=== PATIENT | male | born 1995 | race Caucasian/White ===

== ENCOUNTER 2017-10-22 06:50 | Emergency (ER) | payer OTHER ==
[2017-10-22 07:18] VITALS: RESP 16
[2017-10-22] MEDS ORDERED: SODIUM CHLORIDE 0.9% 1,000 ML IV STA (08:00)
[2017-10-22] MEDS ORDERED: ONDANSETRON 4 MG/2 ML VIAL IVP STA (08:00)
[2017-10-22] MEDS ORDERED: FAMOTIDINE 20 MG/2 ML VIAL IV STA (08:00)
--- NOTE | 2017-10-22 08:02 | ED ---
General Adult HPI - General Chief complaint: Nausea/Vomiting/Diarrhea Stated complaint: Vomiting Time Seen by Provider: 10/22/17 07:58 Source: patient, RN notes reviewed Mode of arrival: ambulatory Limitations: no limitations - History of Present Illness Initial comments: Patient is a pleasant 21-year-old male presenting to the emergency Department with vomiting. Onset was a couple of days ago. Patient has vomited proximal he 45 times. Patient still has nausea. No abdominal pain. Patient has had a few episodes of diarrhea. Patient is unclear whether or not he could've had a fever at one point. Patient did not check his temperature. - Related Data Previous Rx's Medication Instructions Recorded Ondansetron Odt [Zofran Odt] 4 mg PO Q8HR PRN #10 tab 10/22/17 Allergies Allergy/AdvReac Type Severity Reaction Status Date / Time No Known Allergies Allergy Verified 10/22/17 07:43 Review of Systems ROS Statement: Those systems with pertinent positive or pertinent negative responses have been documented in the HPI. ROS Other: All systems not noted in ROS Statement are negative. Constitutional: Denies: weakness Eyes: Denies: eye pain ENT: Denies: ear pain Respiratory: Denies: cough Cardiovascular: Denies: palpitations Endocrine: Denies: fatigue Gastrointestinal: Reports: nausea, vomiting, diarrhea. Denies: abdominal pain Genitourinary: Denies: dysuria Musculoskeletal: Denies: back pain Skin: Denies: rash Neurological: Denies: weakness Past Medical History Past Medical History: No Reported History History of Any Multi-Drug Resistant Organisms: None Reported Past Surgical History: No Surgical Hx Reported Past Psychological History: No Psychological Hx Reported Smoking Status: Current every day smoker Past Alcohol Use History: Rare Past Drug Use History: Marijuana General Exam Limitations: no limitations General appearance: alert, in no apparent distress Head exam: Present: atraumatic Eye exam: Present: normal appearance, PERRL ENT exam: Present: normal oropharynx Neck exam: Present: normal inspection Respiratory exam: Present: normal lung sounds bilaterally Cardiovascular Exam: Present: regular rate, normal rhythm GI/Abdominal exam: Present: soft. Absent: distended, tenderness Extremities exam: Present: normal inspection. Absent: calf tenderness Neurological exam: Present: alert Psychiatric exam: Present: normal affect, normal mood Skin exam: Present: normal color Course Vital Signs 10/22/17 10/22/17 06:53 07:18 Temperature 97 F L Pulse Rate 73 Respiratory 6 L 16 Rate Blood Pressure 141/74 O2 Sat by Pulse 99 Oximetry Medical Decision Making - Medical Decision Making Patient reevaluated and improved. Patient is comfortable with discharge home. Patient updated on results and need for follow-up. - Lab Data Result diagrams: 10/22/17 08:20 10/22/17 08:20 Lab Results 10/22/17 10/22/17 Range/Units 08:20 08:20 WBC 4.7 (3.8-10.6) k/uL RBC 4.36 (4.30-5.90) m/uL Hgb 14.0 (13.0-17.5) gm/dL Hct 40.1 (39.0-53.0) % MCV 92.1 (80.0-100.0) fL MCH 32.0 (25.0-35.0) pg MCHC 34.8 (31.0-37.0) g/dL RDW 12.0 (11.5-15.5) % Plt Count 259 (150-450) k/uL Neutrophils % 48 % Lymphocytes % 38 % Monocytes % 8 % Eosinophils % 3 % Basophils % 1 % Neutrophils # 2.3 (1.3-7.7) k/uL Lymphocytes # 1.8 (1.0-4.8) k/uL Monocytes # 0.4 (0-1.0) k/uL Eosinophils # 0.2 (0-0.7) k/uL Basophils # 0.0 (0-0.2) k/uL Sodium 142 (137-145) mmol/L Potassium 4.3 (3.5-5.1) mmol/L Chloride 104 (98-107) mmol/L Carbon Dioxide 29 (22-30) mmol/L Anion Gap 9 mmol/L BUN 14 (9-20) mg/dL Creatinine 0.80 (0.66-1.25) mg/dL Est GFR (MDRD) Af Amer >60 (>60 ml/min/1.73 sqM) Est GFR (MDRD) Non-Af >60 (>60 ml/min/1.73 sqM) Glucose 98 (74-99) mg/dL Calcium 9.7 (8.4-10.2) mg/dL Total Bilirubin 0.4 (0.2-1.3) mg/dL AST 22 (17-59) U/L ALT 31 (21-72) U/L Alkaline Phosphatase 46 (38-126) U/L Total Protein 6.6 (6.3-8.2) g/dL Albumin 4.1 (3.5-5.0) g/dL Disposition Clinical Impression: Acute vomiting Disposition: HOME SELF-CARE Condition: Stable Instructions: Acute Nausea and Vomiting (ED) Additional Instructions: Please follow-up with primary care physician in the next couple days for recheck. Return for uncontrolled vomiting, pain, fever, worsening symptoms or other concerns. Prescriptions: Ondansetron Odt [Zofran Odt] 4 mg PO Q8HR PRN #10 tab PRN Reason: Nausea Referrals: Ed Gomes MD [STAFF PHYSICIAN] - 1-2 days Time of Disposition: 09:20
[2017-10-22 08:28] LABS: Basophils % (A) 1 %; Eosinophils # (A) 0.2 k/uL (0-0.7); Eosinophils % (A) 3 %; HCT 40.1 % (39.0-53.0); Lymphocytes # (A) 1.8 k/uL (1.0-4.8); Lymphocytes % (A) 38 %; MCHC 34.8 g/dL (31.0-37.0); MCV 92.1 fL (80.0-100.0); Mean Platelet Volume 7.2; Monocytes # (A) 0.4 k/uL (0-1.0); Monocytes % (A) 8 %; Neutrophils # (A) 2.3 k/uL (1.3-7.7); Neutrophils % (A) 48 %; Platelet Count 259 k/uL (150-450); RBC 4.36 m/uL (4.30-5.90); WBC 4.7 k/uL (3.8-10.6)
[2017-10-22 08:39] LABS: ALT 31 U/L (21-72); AST 22 U/L (17-59); Albumin 4.1 g/dL (3.5-5.0); Alkaline Phosphatase 46 U/L (38-126); Anion Gap 9 mmol/L; Blood Urea Nitrogen 14 mg/dL (9-20); Calcium 9.7 mg/dL (8.4-10.2); Carbon Dioxide 29 mmol/L (22-30); Chloride 104 mmol/L (98-107); Glucose 98 mg/dL (74-99); Potassium 4.3 mmol/L (3.5-5.1); Sodium 142 mmol/L (137-145); Total Bilirubin 0.4 mg/dL (0.2-1.3); Total Protein 6.6 g/dL (6.3-8.2)
[2017-10-22 09:30] VITALS: BP 120/70; PULSE 74; TEMP 97.8
== END 2017-10-22 09:29 | disposition home or self-care (01) ==
LOC: EC 06:50
DX: R11.10 Vomiting, unspecified (principal); R19.7 Diarrhea, unspecified; F17.200 Nicotine dependence, unspecified, uncomplicated
CPT/HCPCS: 36415; 80053; 85025; 99284; 96374; 96375; 96361; J2405

== ENCOUNTER 2020-04-01 09:34 | Emergency (ER) | payer OTHER ==
[2020-04-01 09:42] VITALS: TEMP 98.3
--- NOTE | 2020-04-01 10:00 | ED ---
General Adult HPI <Missael Briggs - Last Filed: 04/01/20 17:24> - General Source: patient, EMS, RN notes reviewed Mode of arrival: EMS Limitations: no limitations <Puma Ang - Last Filed: 04/03/20 06:07> - General Chief complaint: Wound/Laceration Stated complaint: Mental health Time Seen by Provider: 04/01/20 09:35 - History of Present Illness Initial comments: 24-year-old male presents emergency Department chief complaint of left arm laceration times psychiatric evaluation. Patient states he is severely depressed states that he drinks alcohol frequently states he is drinking last night and became more depressed because passing of his father. Patient intentionally harm himself. Patient states she does not feel suicidal at this time. Patient denies any other areas of injury no prior attempts. Denies any drug abuse. Patient does have ongoing depression and which she has seen psy chiatrist. He refuses medication treatment. (Puma Ang) - Related Data Previous Rx's Medication Instructions Recorded Ondansetron Odt [Zofran Odt] 4 mg PO Q8HR PRN #10 tab 10/22/17 Allergies Allergy/AdvReac Type Severity Reaction Status Date / Time No Known Allergies Allergy Verified 10/22/17 07:43 Review of Systems ROS Other: All systems not noted in ROS Statement are negative. <Missael Briggs - Last Filed: 04/01/20 17:24> ROS Other: All systems not noted in ROS Statement are negative. <Puma Ang - Last Filed: 04/03/20 06:07> ROS Statement: Those systems with pertinent positive or pertinent negative responses have been documented in the HPI. Past Medical History Past Medical History: No Reported History History of Any Multi-Drug Resistant Organisms: None Reported Past Surgical History: No Surgical Hx Reported Past Psychological History: No Psychological Hx Reported Smoking Status: Current every day smoker Past Alcohol Use History: Rare Past Drug Use History: Marijuana <Puma Ang - Last Filed: 04/03/20 06:07> General Exam Limitations: no limitations General appearance: alert, in no apparent distress Head exam: Present: atraumatic, normocephalic, normal inspection Eye exam: Present: normal appearance, PERRL, EOMI. Absent: scleral icterus, conjunctival injection, periorbital swelling ENT exam: Present: normal exam, normal oropharynx, mucous membranes moist, TM's normal bilaterally, normal external ear exam Neck exam: Present: normal inspection, full ROM. Absent: tenderness, meningismus, lymphadenopathy Respiratory exam: Present: normal lung sounds bilaterally. Absent: respiratory distress, wheezes, rales, rhonchi, stridor Cardiovascular Exam: Present: regular rate, normal rhythm, normal heart sounds. Absent: systolic murmur, diastolic murmur, rubs, gallop, clicks Neurological exam: Present: alert, oriented X3, CN II-XII intact Psychiatric exam: Present: depressed Skin exam: Present: warm, dry, intact, normal color. Absent: rash <Puma Ang Last Filed: 04/03/20 06:07> Course Vital Signs 04/01/20 04/01/20 04/01/20 09:38 09:39 10:30 Temperature 98.3 F Pulse Rate 100 95 90 Respiratory 18 17 17 Rate Blood Pressure 145/101 144/94 O2 Sat by Pulse 98 97 98 Oximetry 04/01/20 04/01/20 04/01/20 11:00 12:00 13:00 Temperature Pulse Rate 90 90 92 Respiratory 17 17 17 Rate Blood Pressure 139/81 136/84 123/78 O2 Sat by Pulse 98 98 98 Oximetry 04/01/20 17:31 Temperature Pulse Rate 80 Respiratory 18 Rate Blood Pressure 108/71 O2 Sat by Pulse 98 Oximetry Procedures - Laceration Laceration #1 Consent Obtained: verbal consent Indication: laceration Site: upper extremity (Left forearm) Size (cm): 6 Description: linear Depth: involves muscle layer Anesthetic Used: lidocaine 1%, without epi Anesthesia Technique: local infiltration Amount (mls): 10 Pre-repair: wound explored (There is noted injury to muscle body with no decreased strength no tendon), irrigated extensively Type of Sutures: nylon, vicryl Size of Sutures: 4-0, other (3 Vicryl in fasia, 7 Vicryl in subcutaneous tissue, 13 external nylon sutures) Number of Sutures: 23 Technique: simple, interrupted Patient Tolerated Procedure: well, no complications <Puma Ang Last Filed: 04/03/20 06:07> Medical Decision Making <Missael Briggs - Last Filed: 04/01/20 17:24> <Puma Ang Filed: 04/03/20 06:07> - Medical Decision Making eps EVALUATED THE PATIENT AND THE PATIENT WAS agreeable to a safety plan and was discharged home (Missael Briggs) 24-year-old male presented from it for left arm laceration, psychiatric evaluation. Patient has a deep laceration to his left forearm into the muscle. He has good strength, reflexes, neurovascular intact. He is advised that he has to follow up with orthopedics and if he does not there is concern for long-term injury. (Puma Ang) - Lab Data Lab Results 04/01/20 Range/Units 10:04 Urine Opiates Screen Not Detected (NotDetected) Ur Oxycodone Screen Not Detected (NotDetected) Urine Methadone Screen Not Detected (NotDetected) Ur Propoxyphene Screen Not Detected (NotDetected) Ur Barbiturates Screen Not Detected (NotDetected) U Tricyclic Antidepress Not Detected (NotDetected) Ur Phencyclidine Scrn Not Detected (NotDetected) Ur Amphetamines Screen Not Detected (NotDetected) U Methamphetamines Scrn Not Detected (NotDetected) U Benzodiazepines Scrn Not Detected (NotDetected) Urine Cocaine Screen Not Detected (NotDetected) U Marijuana (THC) Screen Detected H (NotDetected) Disposition <Missael Briggs - Last Filed: 04/01/20 17:24> Is patient prescribed a controlled substance at d/c from ED?: No Time of Disposition: 06:07 <Puma Ang - Last Filed: 04/03/20 06:07> Clinical Impression: Depression, Laceration of muscle of left forearm Disposition: HOME SELF-CARE Instructions (If sedation given, give patient instructions): Depression (ED) Additional Instructions: Have sutures removed in 10 days.Please return to the Emergency Department if symptoms worsen or any other concerns. Referrals: None,Stated [Primary Care Provider] - 1-2 days Dann France MD [STAFF PHYSICIAN] - 1-2 days
[2020-04-01] MEDS ORDERED: LIDOCAINE 1%-EPI 1:100,000 20 ML VIAL SQ STA (10:03)
[2020-04-01 10:22] LABS: Amphetamine Screen,Urine Not Detected (NotDetected); Barbiturate Screen,Urine Not Detected (NotDetected); Benzodiazepines Screen,Urine Not Detected (NotDetected); Cocaine Screen,Urine Not Detected (NotDetected); Methadone Screen, Urine Not Detected (NotDetected); Opiate Screen,Urine Not Detected (NotDetected); Oxycodone Screen, Urine Not Detected (NotDetected); Phencyclidine Screen,Urine Not Detected (NotDetected); Tricyclic Antidepressant,Urine Not Detected (NotDetected); Urn Cannabinoid Scrn Detected (NotDetected)
[2020-04-01 17:34] VITALS: BP 108/71; PULSE 80; RESP 18
== END 2020-04-01 17:31 | disposition home or self-care (01) ==
LOC: EC 09:34
DX: F17.200 Nicotine dependence, unspecified, uncomplicated (principal); S51.812A Laceration without foreign body of left forearm, initial encounter; X99.1XXA Assault by knife, initial encounter; F32.9 Major depressive disorder, single episode, unspecified
CPT/HCPCS: 12032; 80306; 82075; 99284